=== PATIENT | female | born 1970 | race Two or more races ===

== ENCOUNTER 2018-03-17 19:37 | Emergency (ER) | payer OTHER ==
[~2018-03-17] VITALS: Ht 162.6 cm; Wt 59.9 kg
[~2018-03-17 19:37] MED LIST: IMODIUM A-D2 MG PO; PEPCID40 MG PO; ZOFRAN4 MG PO
== END 2018-03-18 00:37 | disposition home or self-care (01) ==
LOC: ER 19:37
DX: M54.5 Low back pain (principal); M62.830 Muscle spasm of back

== ENCOUNTER 2019-01-26 03:22 | Emergency (ER) | payer OTHER ==
[~2019-01-26] VITALS: Ht 162.6 cm; Wt 61.2 kg
[2019-01-26] MEDS ORDERED: DOXYCYCLINE HY100 M2 PO ×2 (05:07)
[2019-01-26] MEDS ORDERED: STRIBILD TABLE1 EACH PO (05:07)
== END 2019-01-26 23:37 | disposition home or self-care (01) ==
LOC: ER 03:22
DX: F41.8 Other specified anxiety disorders (principal); R45.851 Suicidal ideations; R11.2 Nausea with vomiting, unspecified; R10.2 Pelvic and perineal pain; M54.89 Other dorsalgia

== ENCOUNTER 2019-01-26 10:42 | Emergency (ER) | payer OTHER ==
[~2019-01-26] VITALS: Ht 162.6 cm; Wt 63.5 kg
[~2019-01-26 10:42] MED LIST changes: +DOXYCYCLINE HY100 M2 PO; +STRIBILD TABLE1 EACH PO
== END 2019-01-26 16:05 | disposition designated cancer center or children's hospital (05) ==
LOC: ER 10:42
DX: R11.10 Vomiting, unspecified (principal); R45.851 Suicidal ideations; Z04.41 Encounter for examination and observation following alleged adult rape

== ENCOUNTER 2022-04-17 23:28 | Emergency (ER) | payer OTHER ==
[~2022-04-17] VITALS: Ht 162.6 cm; Wt 62.6 kg
[2022-04-17] MEDS ORDERED: PEPCID AC20 MG PO (23:50)
[2022-04-17] MEDS ORDERED: MELOXICAM15 MG PO (23:50)
[2022-04-18] MEDS ORDERED: ANTIVERT25 M2 PO (02:42)
== END 2022-04-18 02:49 | disposition home or self-care (01) ==
LOC: ER 23:28
DX: G43.909 Migraine, unspecified, not intractable, without status migrainosus (principal); Z88.1 Allergy status to other antibiotic agents; M19.90 Unspecified osteoarthritis, unspecified site; J45.909 Unspecified asthma, uncomplicated; K21.9 Gastro-esophageal reflux disease without esophagitis; I11.9 Hypertensive heart disease without heart failure; K29.70 Gastritis, unspecified, without bleeding; R42 Dizziness and giddiness; I34.1 Nonrheumatic mitral (valve) prolapse

== ENCOUNTER 2022-07-13 19:43 | Emergency (ER) | payer OTHER ==
[~2022-07-13] VITALS: Ht 157.5 cm; Wt 65.3 kg
[~2022-07-13 19:43] MED LIST changes: +ANTIVERT25 M2 PO; +MELOXICAM15 MG PO; +PEPCID AC20 MG PO
[2022-07-13] MEDS ORDERED: WIXELA 250-501 EACH IH (19:55)
[2022-07-13] MEDS ORDERED: SYMBICORT 16010.2 GM IH (19:55)
[2022-07-13] MEDS ORDERED: [UNRECOGNIZED DRUG - SUPPLY] PO (19:56)
[2022-07-13] MEDS ORDERED: AZELASTINE HCL6 ML OP (19:56)
[2022-07-13] MEDS ORDERED: SINGULAIR10 MG PO (19:56)
[2022-07-13] MEDS ORDERED: ALLERGY RELIE15.8 ML NASAL (19:56)
[2022-07-13] MEDS ORDERED: CELEBREX100 MG PO (19:57)
[2022-07-13] MEDS ORDERED: MELOXICAM15 MG PO (19:57)
== END 2022-07-13 22:55 | disposition home or self-care (01) ==
LOC: ER 19:43
DX: L29.8 Other pruritus (principal); Z88.8 Allergy status to other drugs, medicaments and biological substances

== ENCOUNTER 2022-07-17 22:14 | Emergency (ER) | payer OTHER ==
[~2022-07-17] VITALS: Ht 162.6 cm; Wt 65.8 kg
[~2022-07-17 22:14] MED LIST changes: +ALLERGY RELIE15.8 ML NASAL; +AZELASTINE HCL6 ML OP; +CELEBREX100 MG PO; +SINGULAIR10 MG PO; +SYMBICORT 16010.2 GM IH; +WIXELA 250-501 EACH IH; +[UNRECOGNIZED DRUG - SUPPLY] PO
== END 2022-07-17 22:55 | disposition home or self-care (01) ==
LOC: ER 22:14
DX: B86 Scabies (principal); Z88.1 Allergy status to other antibiotic agents

== ENCOUNTER 2022-07-19 20:52 | Emergency (ER) | payer OTHER ==
[~2022-07-19] VITALS: Ht 162.6 cm; Wt 65.8 kg
[2022-07-19] MEDS ORDERED: SYNTHROID88 MCG (21:37)
[2022-07-20] MEDS ORDERED: BENADRYL ALLERG25 MG PO (09:23)
[2022-07-20] MEDS ORDERED: PEPCID AC20 MG PO (09:23)
[2022-07-20] MEDS ORDERED: MEDROLPACK PO (09:23)
== END 2022-07-20 10:29 | disposition home or self-care (01) ==
LOC: ER 20:52
DX: L50.9 Urticaria, unspecified (principal); L29.9 Pruritus, unspecified; Z88.1 Allergy status to other antibiotic agents

== ENCOUNTER 2022-12-24 21:07 | Emergency (ER) | payer OTHER ==
[~2022-12-24] VITALS: Ht 162.6 cm; Wt 64.9 kg
[~2022-12-24 21:07] MED LIST changes: +BENADRYL ALLERG25 MG PO; +MEDROLPACK PO; +SYNTHROID88 MCG
[2022-12-24] MEDS ORDERED: HYDROXYCHLOROQ200 MG PO (22:36)
[2022-12-24] MEDS ORDERED: LEUCOVORIN CALC10 MG PO (22:36)
[2022-12-24] MEDS ORDERED: METHOTREXA25 MG/1 M5 IJ (22:37)
[2022-12-24] MEDS ORDERED: CAMBIA50 MG (22:37)
== END 2022-12-25 04:12 | disposition left against medical advice (07) ==
LOC: ER 21:07
DX: Z53.21 Procedure and treatment not carried out due to patient leaving prior to being seen by health care provider (principal)